=== PATIENT | male | born 1990 ===

== ENCOUNTER 2018-08-18 17:43 | Emergency (ER) | payer SELFPAY ==
[2018-08-18 18:20] VITALS: BP 153/81
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
== END 2018-08-18 18:47 | disposition home health service (06) ==
LOC: UCCORT 17:43
DX: L08.9 Local infection of the skin and subcutaneous tissue, unspecified (principal); S61.502D Unspecified open wound of left wrist, subsequent encounter; F17.210 Nicotine dependence, cigarettes, uncomplicated; Z88.8 Allergy status to other drugs, medicaments and biological substances; X58.XXXD Exposure to other specified factors, subsequent encounter
CPT/HCPCS: 99202; G0463